=== PATIENT | male | born 1950 | race Caucasian/White ===

== ENCOUNTER 2016-10-01 08:18 | Inpatient (IN) | payer OTHER ==
[~2016-10-01] VITALS: Ht 180.3 cm; Wt 91.2 kg
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
[~2016-10-01 08:18] MED LIST: ASPIRIN81 M2 PO; HYDROCODONE-AP1 EAC6 PO; LIPITOR10 MG PO; MOBIC15 MG PO; MULTI VITAMIN1 EACH PO; VITAMIN D1000 UNI1 PO
[2016-10-01 08:19] VITALS: BP 157/93
[2016-10-01 08:46] LABS: HEMATOCRIT 41.3 % (42.0-52.0); HEMOGLOBIN 14.2 gm/dL (14.0-18.0); MANUAL DIFF YES; MCH 31.7 pg (26.0-34.0); MCHC 34.3 g/dL (28.0-37.0); MCV 92.5 fL (80.0-100.0); PLATELET COUNT 295 thou/uL (150-400); RBC 4.46 mil/uL (4.50-6.00); RDW 12.8 % (10.5-14.5); WBC 20.3 thou/uL (4.0-11.0)
[2016-10-01 08:46] LABS: URINE BILIRUBIN NEGATIVE (Negative); URINE BLOOD TRACE (Negative); URINE COLOR YELLOW; URINE GLUCOSE-RANDOM* NEGATIVE (Negative); URINE KETONES NEGATIVE (Negative); URINE LEUKOCYTES-REFLEX NEGATIVE (Negative); URINE PROTEIN (DIPSTICK) NEGATIVE (Negative); URINE SPECIFIC GRAVITY 1.015 (1.003-1.035); URINE UROBILINOGEN 0.2 E.U./dl (0.2-1.0)
[2016-10-01 08:54] LABS: CALCIUM 8.9 mg/dL (8.5-10.1)
[2016-10-01 09:00] LABS: ALBUMIN 3.8 g/dL (3.4-5.0); TOTAL BILIRUBIN 0.7 mg/dL (<0.1-1.0); TOTAL PROTEIN 8.3 g/dL (6.4-8.2)
[2016-10-01 09:11] LABS: ABSOLUTE NEUTROPHILS 15.2 thou/uL (1.4-8.2); TOTAL CELL COUNT 100
[2016-10-01 09:12] LABS: PLATELET ESTIMATE NORMAL
[2016-10-01] MEDS ORDERED: ROSUVASTATIN CAL5 MG PO (10:50)
[2016-10-01 10:51] VITALS: BP 164/91
[2016-10-01 11:07] VITALS: BP 160/82
[2016-10-01 11:23] VITALS: BP 155/89
[2016-10-01 16:14] VITALS: BP 147/82
[2016-10-01 19:55] VITALS: BP 122/66
[2016-10-02] VITALS: BP 117/61
[2016-10-02 04:30] VITALS: BP 128/88
[2016-10-02 04:40] LABS: ABSOLUTE NEUTROPHILS 9.9 thou/uL (1.4-8.2); BASOPHILS 0.5 % (0.0-2.0); EOSINOPHILS 1.8 % (0.0-3.0); HEMATOCRIT 37.7 % (42.0-52.0); HEMOGLOBIN 12.6 gm/dL (14.0-18.0); LYMPHOCYTES 14.7 % (24.0-44.0); MCH 31.2 pg (26.0-34.0); MCHC 33.3 g/dL (28.0-37.0); MCV 93.6 fL (80.0-100.0); MONOCYTES 10.9 % (1.0-8.0); PLATELET COUNT 239 thou/uL (150-400); POLYS 72.1 % (36.0-66.0); RBC 4.03 mil/uL (4.50-6.00); RDW 12.6 % (10.5-14.5); WBC 13.8 thou/uL (4.0-11.0)
[2016-10-02 04:58] LABS: MANUAL DIFF NO
[2016-10-02 05:01] LABS: ALBUMIN 2.9 g/dL (3.4-5.0); CALCIUM 7.9 mg/dL (8.5-10.1); CREATININE 0.9 mg/dL (0.7-1.3); MAGNESIUM 1.9 mg/dL (1.8-2.4); POTASSIUM 3.6 mmol/L (3.5-5.1); TOTAL BILIRUBIN 0.9 mg/dL (<0.1-1.0); TOTAL PROTEIN 6.8 g/dL (6.4-8.2)
[2016-10-02 08:37] VITALS: BP 132/89
[2016-10-02 17:40] VITALS: BP 141/76
[2016-10-02 19:35] VITALS: BP 139/77
[2016-10-03 04:03] VITALS: BP 139/83
[2016-10-03 04:08] LABS: HEMATOCRIT 37.3 % (42.0-52.0); HEMOGLOBIN 12.5 gm/dL (14.0-18.0); MCH 31.5 pg (26.0-34.0); MCHC 33.6 g/dL (28.0-37.0); MCV 93.5 fL (80.0-100.0); RBC 3.98 mil/uL (4.50-6.00); RDW 12.4 % (10.5-14.5); WBC 11.6 thou/uL (4.0-11.0)
[2016-10-03 04:11] LABS: CALCIUM 8.1 mg/dL (8.5-10.1); POTASSIUM 3.7 mmol/L (3.5-5.1)
[2016-10-03 08:00] VITALS: BP 136/84
[2016-10-03] MEDS ORDERED: AUGMENTIN 875875 MG PO (08:04)
[2016-10-03] MEDS ORDERED: FLAGYL500 MG PO (08:04)
[2016-10-03 16:18] VITALS: BP 136/84
== END 2016-10-03 17:01 | disposition home or self-care (01) | DRG 392 ==
LOC: ER 08:18 → 3N 10:14 → EROBS 10:14 → 3N 11:14
PROVIDERS: Emergency Medicine; Family Medicine; Nurse Practitioner
DX: K57.32 Diverticulitis of large intestine without perforation or abscess without bleeding (principal); G40.909 Epilepsy, unspecified, not intractable, without status epilepticus; Z96.641 Presence of right artificial hip joint; E78.5 Hyperlipidemia, unspecified; D72.829 Elevated white blood cell count, unspecified; R73.03 Prediabetes; I10 Essential (primary) hypertension; Z79.899 Other long term (current) drug therapy; Z88.8 Allergy status to other drugs, medicaments and biological substances; Z87.891 Personal history of nicotine dependence; Z83.79 Family history of other diseases of the digestive system
CPT/HCPCS: 10094

== ENCOUNTER → 2016-12-01 | Outpatient (CLI) | payer OTHER ==
[~2016-12-01] VITALS: Ht 180.3 cm; Wt 93.4 kg
[~2016-12-01] MED LIST changes: +AUGMENTIN 875875 MG PO; +CARDIO OMEGA B1 EACH PO; +CRESTOR5 MG PO; +FLAGYL500 MG PO; +ROSUVASTATIN CAL5 MG PO; +[UNRECOGNIZED DRUG - OTHER] PO
--- NOTE | ~2016-12-01 | S ---
[facility] [place] [address] SURGICAL PATH RPT PROCEDURE Name: GHADADUC OZZY Room #: REG [facility].#: [id number] Admission: 12/01/16 Date of : 50 Discharge: Report #: [id number] Path Case #: [id number] PATHOLOGY REPORT COLLECTION DATE: 12/01/2016 RECEIVED DATE: 12/01/2016 SUBMITTING PHYS: Dr. Nicola Alatorre OTHER PHYS: Dr Virgen Gomes SPECIMEN(S) RECEIVED: A.Proximal ascending colon polyps x2 B.Proximal transverse colon polyps x2 C.Polyp at 80 cm x2 * * * * * * * * * * * * FINAL DIAGNOSIS: A. "Proximal ascending colon polyps x 2", biopsy: - Tubular adenoma; no high grade dysplasia. B. "Proximal transverse colon polyps x 2", biopsy: - Tubular adenoma; no high grade dysplasia. C. "Polyp at 80 cm x 2", biopsy: - Tubular adenoma; no high grade dysplasia. (CLW:pit; 12/03/2016) PATHOLOGIST: Meme Biggs M.D. REPORT ELECTRONICALLY SIGNED BY: Meme Biggs M.D. DATE/TIME: 12/03/2016 15:11 * * * * * * * * * * * * GROSS PATHOLOGY: A. Received in formalin labeled "WsieDuc Ozzy, polyp at proximal ascending colon," are 2 segments of oliva soft tissue measuring 1.1 x 0.3 x 0.2 cm in aggregate dimensions and ranging from 0.5 to 0.6 cm in maximum dimension. The specimen is submitted entirely in cassette A1. B. Received in formalin labeled "Duc Wise, polyps at proximal transverse colon," are 2 segments of oliva soft tissue measuring 1.0 x 0.3 x 0.3 cm in aggregate dimensions and ranging from 0.4 to 0.6 cm in maximum dimension. The specimen is submitted entirely in cassette B1. C. Received in formalin labeled "Duc Wise, polyps at 80 cm," are 2 segments of oliva soft tissue measuring 0.6 x 0.3 x 0.2 cm in aggregate dimensions and ranging from 0.2 to 0.4 cm in maximum dimension. The specimen is submitted entirely in cassette C1. (LISANDRO; 12/02/2016) [address] [address] SURGICAL PATH RPT PROCEDURE Name: DUC WISE Room #: [facility].#: [id number] Admission: 12/01/16 Date of : 50 Discharge: Report #: [id number] Path Case #: [id number] CLINICAL HISTORY: History of polyps, colon polyps, diverticulosis INITIAL CPT CODE(S): A; 41456 B; 49033 C; 16922 Professional services performed by [facility] at [address] , [place] [address] Technical services performed by [facility] at [address] [place] [address], [address], [place] [address]. [facility] [address] [place] [address] PHONE: [phone] DIRECTOR: Oc Hutchison M.D. * * * END OF REPORT * * *
--- NOTE | ~2016-12-01 | P ---
[facility] [place] [address] PROCEDURE REPORT Name: SHAE URRUTIA Room #: REG [facility]#: [id number] Admission: 12/01/16 Attend Phys: Nicola Alatorre MD Discharge: Date of : 50 Report #: [id number] THIS REPORT FOR: //name// CC: Virgen Alatorre OUTPATIENT COLONOSCOPY REPORT BRIEF HISTORY: The patient is a 66-year-old male with history of colon polyps with last colonoscopy more than 3 years ago. He also had a recent bout of diverticulitis. He presents for high risk screening colonoscopy due to his history of colon polyps. PREOPERATIVE DIAGNOSIS: High risk screening colonoscopy. POSTOPERATIVE DIAGNOSES: 1. Multiple colon polyps. 2. Moderate to severe diverticulosis coli, sigmoid colon. MEDICATIONS: Deep sedation with propofol per anesthesia. SPECIMENS: 1. Polyps x 2, proximal ascending colon. 2. Polyps x 2, proximal transverse colon. 3. Polyps x 2 at 80 cm. ESTIMATED BLOOD LOSS: 3 mL. PROCEDURE: Colonoscopy to cecum and terminal ileum with snare polypectomy and biopsy. FINDINGS: Prior to propofol sedation, procedure of colonoscopy discussed with the patient as well as potential risks and its complications. He indicates he understands and desires to proceed. DESCRIPTION OF PROCEDURE: With the patient in left lateral decubitus position, digital examination was completed, which revealed no abnormalities. Subsequently, the [employer] video colonoscope was introduced into the rectum and advanced under direct vision to the cecum. Done with minimal difficulty. The cecum was identified by the ileocecal valve and the appendiceal orifice. I was able to visualize the distal segment of the terminal ileum, which was inspected and noted to be unremarkable. At that point, the scope was slowly withdrawn and careful circumferential views obtained including retroflexion of the scope in the ascending colon. As we withdrew the scope, the prep was noted to be excellent. There were 2 diminutive polyps in the proximal ascending colon, [facility] [address] [place] [address] PROCEDURE REPORT Name: SHAE URRUTIA Room #: REG [facility].#: [id number] Admission: 12/01/16 Attend Phys: Nicola Alatorre MD Discharge: Date of : 50 Report #: [id number] removed by biopsy. As we withdrew the scope, he was found to have 2 polyps in the proximal transverse colon, one was a fairly flat 5 mm triangular shaped polyp removed by cold snare polypectomy and the other was a diminutive polyp removed by biopsy. Scope was further withdrawn and no additional abnormalities were noted until about 80 cm, at which point 2 diminutive polyps were seen and removed by biopsy. Scope was further withdrawn and no additional polyps were seen; however, he was noted to have moderately severe diverticular disease of the sigmoid colon without endoscopic evidence of diverticulitis. Scope was withdrawn in the rectum. Upon retroflexion, no abnormalities were seen. Scope was withdrawn. The patient tolerated the procedure well. CONDITION OF THE PATIENT UPON DISCHARGE: Following procedure, the patient drowsy, aroused, conversant and will be discharged home when fully ambulatory. INSTRUCTIONS TO THE PATIENT AND FAMILY AT THE TIME OF DISCHARGE: The patient with findings of 6 polyps as described above. All were small. All had benign appearance. He is noted to have a previous history of colon polyps. We will follow up on the path and make surveillance recommendations. If 3 or more adenomas, he should return in 3 years; if only 1 or 2 adenomas, then 5 years; if none adenomas, then 10 years would be indicated. He has had a recent bout of diverticulitis and he should follow up with Dr. Ajay Carcamo with regards to discussion of the role of segmental resection of his sigmoid colon due to recurrent bouts of diverticulitis. Last colonoscopy was more than 3 years ago. Withdrawal time from the cecum was 21 minutes and 51 seconds. <ELECTRONICALLY SIGNED> By: Nicola Alatorre MD 12/01/16 1742 [id number] Nicola Alatorre MD /nt
== END | disposition home or self-care (01) ==
LOC: GI 09:14
DX: Z09 Encounter for follow-up examination after completed treatment for conditions other than malignant neoplasm (principal); Z87.19 Personal history of other diseases of the digestive system; K63.5 Polyp of colon; K57.30 Diverticulosis of large intestine without perforation or abscess without bleeding; G40.909 Epilepsy, unspecified, not intractable, without status epilepticus; E78.00 Pure hypercholesterolemia, unspecified; Z96.641 Presence of right artificial hip joint; Z98.890 Other specified postprocedural states; Z88.0 Allergy status to penicillin; Z79.82 Long term (current) use of aspirin
CPT/HCPCS: 62110; 62900